=== PATIENT | female | born 1965 | race Caucasian/White ===

== ENCOUNTER → 2024-09-02 | Outpatient (CLI) | payer BC ==
--- NOTE | 2024-09-05 07:49 | MM ---
Reason for Exam: Screening (asymptomatic). Last mammogram was performed 8 year(s) and 9 month(s) ago. Patient History: Menarche at age 9. Patient has no children. Postmenopausal. Risk Values: Meghann 5 year model risk: 1.8%. NCI Lifetime model risk: 8.9%. Prior Study Comparison: 12/19/2015 Bilateral Diagnostic Mammogram, [facility]. Tissue Density: The breasts are heterogeneously dense, which may obscure small masses. Findings: Analyzed By CAD. There is no suspicious group of microcalcifications in either breast. 6 mm nodular density seen best on CC view at approximately right 11:00 position. Additional views are recommended. Overall Assessment: Incomplete: need additional imaging evaluation, BI-RAD 0 Management: Diagnostic Mammogram of the right breast. . Patient should continue monthly self-breast exams. A clinical breast exam by your physician is recommended on an annual basis. This exam should not preclude additional follow-up of suspicious palpable abnormalities. Note on Meghann scores and lifetime risk: 1. A Meghann score greater than 3% is considered moderate risk. If this is the case, consider specialist referral to assess eligibility for a risk reducing agent. 2. If overall lifetime risk for the development of breast cancer is 20% or higher, the patient may qualify for future screening with alternating mammogram and breast MRI. [facility], , 09/05/2024 7:46 AM. Electronically signed and approved by: Jarvis Diego M.D. Radiologis
== END | disposition home or self-care (01) ==
LOC: RADMAMWWP 15:13
PROVIDERS: ATTEND Family Medicine
DX: Z12.31 Encounter for screening mammogram for malignant neoplasm of breast (principal); R92.333 Mammographic heterogeneous density, bilateral breasts; Z78.0 Asymptomatic menopausal state
CPT/HCPCS: 77067

== ENCOUNTER → 2024-09-12 | Outpatient (CLI) | payer BC ==
--- NOTE | 2024-09-13 08:25 | MM ---
Reason for Exam: Additional evaluation requested from abnormal screening. Last screening mammogram was performed less than 1 month ago. Patient History: Menarche at age 9. Patient has no children. Postmenopausal. Risk Values: Meghann 5 year model risk: 1.8%. NCI Lifetime model risk: 8.9%. Prior Study Comparison: 12/19/2015 Bilateral Diagnostic Mammogram, [facility]. 12/19/2015 Bilateral Diagnostic Ultrasound, [facility]. 09/02/2024 Bilateral MG screening mammo w CAD, [facility]. Tissue Density: Right: The breasts are heterogeneously dense, which may obscure small masses. Findings: Analyzed By CAD. Area of concern/asymmetry in the right breast compresses out on spot compression imaging. No suspicious masses, calcifications or distortions. Overall Assessment: Benign, BI-RAD 2 Management: Screening Mammogram of both breasts in 1 year. Results were given to the patient verbally at the time of exam. Patient should continue monthly self-breast exams. A clinical breast exam by your physician is recommended on an annual basis. This exam should not preclude additional follow-up of suspicious palpable abnormalities. Note on Meghann scores and lifetime risk: 1. A Meghann score greater than 3% is considered moderate risk. If this is the case, consider specialist referral to assess eligibility for a risk reducing agent. 2. If overall lifetime risk for the development of breast cancer is 20% or higher, the patient may qualify for future screening with alternating mammogram and breast MRI. [facility], , 09/13/2024 8:23 AM. Electronically signed and approved by: Salvatore Sol DO
== END | disposition home or self-care (01) ==
LOC: RADMAMWWP 14:52
PROVIDERS: ATTEND Family Medicine
DX: R92.8 Other abnormal and inconclusive findings on diagnostic imaging of breast (principal); R92.331 Mammographic heterogeneous density, right breast; Z78.0 Asymptomatic menopausal state
CPT/HCPCS: 77061; 77065